=== PATIENT | female | born 1985 | race American Indian/Alaskan Native ===

== ENCOUNTER 2016-12-08 08:32 | Emergency (ER) | payer OTHER ==
[2016-12-08] MEDS ORDERED: FUL-GLO OP ONE (12:16)
[2016-12-08] MEDS ORDERED: TETRACAINE 0.5% OU ONE (12:16)
--- NOTE | 2016-12-08 12:24 | Emergency Department Report ---
HPI - General Chief Complaint: Eye Problems Time Seen by Provider: 12/08/16 12:05 - HPI HPI: 31-year-old female presents today with right thigh pain and swelling since 8:30 last night. Patient states that she accidentally hit her eye with a bike handle. Positive for erythema and tearing. Describes her pain as 8 out of 10 throbbing, burning pain. Patient applied ice and took ibuprofen with some relief. Positive for blurred vision. Denies fever, chills, nausea, vomiting, chest pain, shortness of breath, abdominal pain. ED Past Medical Hx - Past Medical History Previous Medical History?: Yes Additional medical history: PE 01/2015. uterine fibroids - Surgical History Past Surgical History?: Yes - Social History Smoking Status: Current Every Day Smoker Substance Use Type: Marijuana - Medications Home Medications: Home Medications Medication Instructions Recorded Confirmed Last Taken Type Ketorolac [Toradol] 10 mg PO Q6H PRN #15 tablet 12/08/16 Unknown Rx Ofloxacin 0.3% [Ocuflox] 2 drops OP Q4H #1 bottle 12/08/16 Unknown Rx ED Review of Systems ROS: Stated complaint: RIGHT EYE PAIN/ Other details as noted in HPI Constitutional: denies: chills, fever, malaise Eyes: eye pain, eye discharge, vision change ENT: denies: ear pain, throat pain, congestion Respiratory: denies: cough, shortness of breath, wheezing Cardiovascular: denies: chest pain, palpitations Endocrine: no symptoms reported Gastrointestinal: denies: abdominal pain, nausea, vomiting Neurological: denies: headache, weakness Physical Exam - Physical Exam Vital Signs: Vital Signs 12/08/16 08:45 Temperature 99.1 F Pulse Rate 79 Respiratory 16 Rate Blood Pressure 112/71 O2 Sat by Pulse 99 Oximetry Physical Exam: GENERAL: The patient is well-developed and well-nourished. Patient is in NAD. HEAD: Normocephalic. Atraumatic. EYES: Extraocular motions are intact, but pain with upward-right and right sided gaze of right eye. PERRL. positive for minimal swelling of the periorbital region. Positive for conjunctival injection of right eye, just right to the pupil. EARS: External auditory canals and tympanic membranes clear; hearing grossly intact. NOSE: Normal nasal mucosa with no nasal discharge. THROAT: No erythema, swelling or exudates. NECK: Supple, nontender, without lymphadenopathy. CHEST/LUNGS: Clear to auscultation throughout. HEART/CARDIOVASCULAR: Regular rate and rhythm. ABDOMEN: Abdomen is soft, nontender. No guarding or rebound tenderness. EXTREMITIES: Peripheral pulses intact. Capillary refill less than 2 seconds. NEURO: Alert and oriented x 3. Normal gait. ED Course Vital Signs 12/08/16 08:45 Temperature 99.1 F Pulse Rate 79 Respiratory 16 Rate Blood Pressure 112/71 O2 Sat by Pulse 99 Oximetry - Procedure Description Procedures done: Local anesthesia acquired with 2gtts of tetracaine ophthalmic solution. Fluorescence stain was then applied to the eye for further examination. The eye was visualized using a wood lamp and a corneal abrasion was visualized to the right of the pupil, no foreign body seen. Care instructions and follow up instructions were provided to the patient. ED Medical Decision Making - Lab Data Vital Signs 12/08/16 08:45 Temperature 99.1 F Pulse Rate 79 Respiratory 16 Rate Blood Pressure 112/71 O2 Sat by Pulse 99 Oximetry - Radiology Data Radiology results: report reviewed CT scan of orbits included facial bones. History: Trauma to right eye. Findings: The bulb and retrobulbar area appears unremarkable. The orbital musculature appears unremarkable. No evidence of fracture the orbital wall. The adjacent sinuses appears normal. Bilaterally the maxilla appears unremarkable. Impression: No evidence of acute fracture. - Medical Decision Making 31-year-old female presents today with right eye injection with periorbital swelling post injury. Patient had pain with extraocular movements therefore a CT was ordered. Her CT of orbits reveals no evidence of acute fracture. Her eye was fluorescein stained and Chris lamp exam reveals corneal abrasion. Patient has been provided with a referral for ophthalmology. Patient is in no acute distress at this time. She will be discharged home and is encouraged to follow up with a primary care provider. She will be sent home on ofloxacin optic drops and toradol and is encouraged to return to the emergency room for any worsening symptoms. Critical care attestation.: If time is entered above; I have spent that time in minutes in the direct care of this critically ill patient, excluding procedure time. ED Disposition Clinical Impression: Corneal abrasion Qualifiers: Encounter type: initial encounter Laterality: right Qualified Code(s): S05.01XA - Injury of conjunctiva and corneal abrasion without foreign body, right eye, initial encounter Disposition: DISCHARGED TO HOME OR SELFCARE Is pt being admited?: No Does the pt Need Aspirin: No Condition: Stable Instructions: Corneal Abrasion (ED) Additional Instructions: Follow with plate colorer. Return to the emergency department if symptoms worsen. Prescriptions: Ofloxacin 0.3% [Ocuflox] 2 drops OP Q4H #1 bottle Ketorolac [Toradol] 10 mg PO Q6H PRN #15 tablet PRN Reason: Pain Referrals: PRIMARY CAREMD [Primary Care Provider] - 3-5 Days ASTRID MILLER MD [Staff Physician] - 3-5 Days Forms: Work/School Release Form(ED) Time of Disposition: 14:27
[2016-12-08 12:40] LABS: Bilirubin,Urine NEG (Negative); Blood,Urine MOD (Negative); Ketones,Urine TR mg/dL (Negative); Leukocyte Esterase,Urine SM (Negative); Mucus,Urine FEW /HPF; Nitrite,Urine NEG (Negative); Protein,Urine <15 mg/dL mg/dL (Negative); Urobilinogen,Urine < 2.0 mg/dL (<2.0)
--- NOTE | 2016-12-08 13:51 | Cat Scan Report ---
CT scan of orbits included facial bones. History: Trauma to right eye. Findings: The bulb and retrobulbar area appears unremarkable. The orbital musculature appears unremarkable. No evidence of fracture the orbital wall. The adjacent sinuses appears normal. Bilaterally the maxilla appears unremarkable. Impression: No evidence of acute fracture.
[2016-12-08 14:38] VITALS: BP 124/71
== END 2016-12-08 14:37 | disposition home or self-care (01) ==
LOC: ED 08:32
DX: S05.01XA Injury of conjunctiva and corneal abrasion without foreign body, right eye, initial encounter (principal); F12.10 Cannabis abuse, uncomplicated; F17.200 Nicotine dependence, unspecified, uncomplicated; W22.8XXA Striking against or struck by other objects, initial encounter; Y93.9 Activity, unspecified; Y92.89 Other specified places as the place of occurrence of the external cause; Y99.9 Unspecified external cause status
CPT/HCPCS: 70480; 81001; 81025